=== PATIENT | male | born 1960 | race Caucasian/White ===

== ENCOUNTER 2021-10-07 07:57 | Outpatient (CLI) | payer OTHER, SELFPAY ==
[2021-10-07 12:42] LABS: Albumin* 4.3 g/dL (3.3-5.0); Chloride* 106 mmol/L (96-114); Potassium* 4.5 mmol/L (3.6-5.1); Sodium* 139 mmol/L (135-149)
[2021-10-07 12:44] LABS: Bilirubin Total* 0.4 mg/dL (0.1-1.5); Carbon Dioxide* 23 mmol/L (20-32); Creatinine* 0.8 mg/dL (0.5-1.5); Estimated Glomerular Filt Rate 102 ml/min
[2021-10-07 12:45] LABS: Alanine Aminotransferase* 22 U/L (4-50); Alkaline Phosphatase* 92 U/L (40-150); Aspartate Amino Transferase* 27 U/L (12-35); Blood Urea Nitrogen* 27 mg/dL (7-30); Calcium* 9.1 mg/dL (8.4-10.6); Glucose* 149 mg/dL (60-115); Total Protein* 7.1 g/dL (6.0-8.3)
[2021-10-07 12:48] LABS: Creatinine Urine 170.8 mg/dL
[2021-10-07 12:53] LABS: Microalbumin Creatinine Ratio 20 mg/g (0-30); Microalbumin Urine 4 mg/dL
== END 2021-10-07 07:58 | disposition home or self-care (01) ==
PROVIDERS: PCP Family Medicine; Visit Provider Family Medicine
DX: E11.69 Type 2 diabetes mellitus with other specified complication (principal); E66.01 Morbid (severe) obesity due to excess calories; E66.9 Obesity, unspecified; I10 Essential (primary) hypertension; F90.2 Attention-deficit hyperactivity disorder, combined type; Z68.43 Body mass index [BMI] 50.0-59.9, adult
CPT/HCPCS: 80053; 82043; 82570

== ENCOUNTER 2022-01-10 15:10 | Outpatient (CLI) | payer OTHER, SELFPAY ==
[2022-01-10 10:45] LABS: Albumin* 4.6 g/dL (3.3-5.0); Chloride* 106 mmol/L (96-114)
[2022-01-10 10:46] LABS: Potassium* 4.6 mmol/L (3.6-5.1); Sodium* 138 mmol/L (135-149)
[2022-01-10 10:48] LABS: Alanine Aminotransferase* 24 U/L (4-50); Alkaline Phosphatase* 88 U/L (40-150); Aspartate Amino Transferase* 23 U/L (12-35); Bilirubin Total* 0.4 mg/dL (0.1-1.5); Blood Urea Nitrogen* 19 mg/dL (7-30); Carbon Dioxide* 22 mmol/L (20-32); Creatinine* 0.8 mg/dL (0.5-1.5); Estimated Glomerular Filt Rate 102 ml/min; Glucose* 117 mg/dL (60-115); Total Protein* 7.2 g/dL (6.0-8.3)
[2022-01-10 10:49] LABS: Calcium* 9.5 mg/dL (8.4-10.6)
== END 2022-01-10 15:11 | disposition home or self-care (01) ==
PROVIDERS: PCP Family Medicine; Visit Provider Family Medicine
DX: I10 Essential (primary) hypertension (principal); E66.9 Obesity, unspecified
CPT/HCPCS: 80053

== ENCOUNTER 2022-01-25 08:42 | Outpatient (CLI) | payer OTHER, SELFPAY ==
[2022-01-25 14:25] LABS: Chloride* 103 mmol/L (96-114); Potassium* 4.9 mmol/L (3.6-5.1); Sodium* 136 mmol/L (135-149)
[2022-01-25 14:28] LABS: Blood Urea Nitrogen* 24 mg/dL (7-30); Carbon Dioxide* 22 mmol/L (20-32); Creatinine* 0.8 mg/dL (0.5-1.5); Estimated Glomerular Filt Rate 102 ml/min; Glucose* 124 mg/dL (60-115)
[2022-01-25 14:29] LABS: Calcium* 9.8 mg/dL (8.4-10.6)
== END 2022-01-25 08:43 | disposition home or self-care (01) ==
LOC: NFLDREF 09:11
PROVIDERS: PCP Family Medicine; Visit Provider Family Medicine
DX: I10 Essential (primary) hypertension (principal)
CPT/HCPCS: 80048

== ENCOUNTER 2022-10-17 07:35 | Outpatient (CLI) | payer OTHER, SELFPAY | END 2022-10-17 07:36 | disposition home or self-care (01) | LOC: NFLDREF 10:34 | PROVIDERS: PCP Family Medicine; Referring Provider Family Medicine; Visit Provider Family Medicine | DX: I10 Essential (primary) hypertension (principal); Z79.1 Long term (current) use of non-steroidal anti-inflammatories (NSAID); E11.69 Type 2 diabetes mellitus with other specified complication; E66.9 Obesity, unspecified | CPT/HCPCS: 80053 ==

== ENCOUNTER 2023-01-12 10:08 | Outpatient (CLI) | payer OTHER, SELFPAY ==
--- NOTE | 2023-01-12 11:40 | W.ANESCHARGE ---
Anesthesia Charges Start Date/Time Anesthesia Start Date: 01/12/23 Anesthesia Start Time: 11:05 Stop Date/Time Anesthesia Stop Date: 01/12/23 Anesthesia Stop Time: 11:38
--- NOTE | 2023-01-12 11:59 | W.ANESCHARGE ---
Anesthesia Charges Start Date/Time Anesthesia Start Date: 01/12/23 Anesthesia Start Time: 11:05 Stop Date/Time Anesthesia Stop Date: 01/12/23 Anesthesia Stop Time: 11:38
== END 2023-01-12 10:09 | disposition home or self-care (01) ==
LOC: OP CLINIC 10:08
PROVIDERS: PCP Family Medicine; Visit Provider Surgery
DX: Z12.11 Encounter for screening for malignant neoplasm of colon (principal); K63.5 Polyp of colon; Z86.010 Personal history of colon polyps
CPT/HCPCS: 00811; 45385; 88305; J2704

== ENCOUNTER 2023-01-16 07:35 | Outpatient (CLI) | payer OTHER, SELFPAY | END 2023-01-16 07:36 | disposition home or self-care (01) | LOC: NFLDREF 01-18 11:35 | PROVIDERS: PCP Family Medicine; Referring Provider Family Medicine; Visit Provider Family Medicine | DX: I10 Essential (primary) hypertension (principal); E11.69 Type 2 diabetes mellitus with other specified complication; E66.9 Obesity, unspecified; Z79.1 Long term (current) use of non-steroidal anti-inflammatories (NSAID) | CPT/HCPCS: 80053 ==

== ENCOUNTER 2023-07-17 07:25 | Outpatient (CLI) | payer BC, SELFPAY | END 2023-07-17 07:26 | disposition home or self-care (01) | LOC: NFLDREF 07-31 17:33 | PROVIDERS: PCP Family Medicine; Referring Provider Family Medicine; Visit Provider Family Medicine | DX: E11.69 Type 2 diabetes mellitus with other specified complication (principal); E55.9 Vitamin D deficiency, unspecified; E78.5 Hyperlipidemia, unspecified; I10 Essential (primary) hypertension; Z79.1 Long term (current) use of non-steroidal anti-inflammatories (NSAID) | CPT/HCPCS: 80053; 80061; 82043; 82306; 82570; 82607; G0103 ==

== ENCOUNTER 2023-07-19 07:57 | Outpatient (CLI) | payer BC, SELFPAY | END 2023-07-19 07:58 | disposition home or self-care (01) | LOC: NFLDREF 07:58 | PROVIDERS: PCP Family Medicine; Visit Provider Family Medicine | DX: Z00.00 Encounter for general adult medical examination without abnormal findings (principal); E11.69 Type 2 diabetes mellitus with other specified complication; E66.9 Obesity, unspecified; I10 Essential (primary) hypertension; Z12.5 Encounter for screening for malignant neoplasm of prostate; Z79.1 Long term (current) use of non-steroidal anti-inflammatories (NSAID); Z13.9 Encounter for screening, unspecified | CPT/HCPCS: 82043; 82570 ==

== ENCOUNTER 2023-10-05 09:15 | Emergency (ER) | payer BC, SELFPAY ==
[2023-10-05 09:26] VITALS: BP 124/74; PULSE 100; RESP 16; TEMP 36.3; O2SAT 98; BMI 46.7
--- NOTE | 2023-10-05 09:46 | ED_ITS ---
HPI - General Adult General Chief complaint: Arrhythmia/Palpitations Stated complaint: Palpitations, sweating, smart watch says afib Time Seen by Provider: 10/05/23 09:21 History of Present Illness HPI narrative: This 63-year-old male comes in reporting symptoms of lightheadedness and di aphoresis and some chest discomfort that occur with exertion. He states that he looked at his what chin saw an irregular beat that his watch determined was atrial fibrillation. He reports now that he has been experiencing some chest discomfort with exertion over the past week or 2. This morning he climbed up a ladder onto a roof and began to have symptoms of chest discomfort, lightheadedness, and diaphoresis. His symptoms resolved with rest. He is not currently having any symptoms. He is taking medicine for his blood pressure but does not have any other risk factors except for obesity. Related Data Home Medications ?Medication ?Instructions ?Recorded ?Confirmed fexofenadine 60 mg tablet (Allergy 60 mg PO QDAY 10/12/21 07/19/23 Relief (fexofenadine)) flaxseed oil 1,000 mg capsule 1,000 mg PO QDAY 10/12/21 07/19/23 glucosamine HCl 500 mg tablet 500 mg PO QDAY 10/12/21 07/19/23 magnesium oxide 250 mg PO QDAY 10/12/21 07/19/23 naproxen sodium 220 mg tablet 220 mg PO BID 10/12/21 07/19/23 omeprazole 20 mg capsule,delayed 20 mg PO QDAY 10/12/21 07/19/23 release thiamine HCl (vitamin B1) 50 mg 50 mg PO QDAY 10/12/21 07/19/23 tablet cholecalciferol (vitamin D3) 50 50 mcg PO QDAY 07/19/23 07/19/23 mcg (2,000 unit) tablet Previous Rx's ?Medication ?Instructions ?Recorded blood sugar diagnostic (Wireless EnvironmentTouch #100 ea 09/28/21 Verio test strips) chlorthalidone 25 mg tablet 12.5 mg (1/2 x 25 mg) PO QDAY #90 07/19/23 tabs metformin 500 mg tablet,extended 1,000 mg (2 x 500 mg) PO BID #360 07/19/23 release 24 hr tabs rosuvastatin 5 mg tablet 5 mg PO DAILY #90 tabs 07/19/23 semaglutide 2 mg/dose (8 mg/3 mL) 2 mg (0.75 mL) subcut QWEEK #3 mL 07/19/23 subcutaneous pen injector (Ozempic) sertraline 100 mg tablet 200 mg (2 x 100 mg) PO DAILY #180 07/19/23 tabs methylphenidate HCl 20 mg 20 mg PO BID #60 tabs 09/15/23 tablet,extended release lisinopril 40 mg tablet 40 mg PO DAILY #90 tabs 10/03/23 metoprolol succinate 25 mg 25 mg PO DAILY #30 tabs 10/05/23 tablet,extended release 24 hr Allergies Allergy/AdvReac Type Severity Reaction Status Date / Time No Known Allergies Allergy Verified 07/19/23 07:18 Review of Systems Status of ROS: Reports: 10 or more systems reviewed and unremarkable except as noted in History and below Narrative: Constitutional: No fevers, no weight gain or loss. Eyes: No discharge. No vision changes. HENT: No congestion, no sore throat, no ear pain. Cardiovascular: Chest discomfort and palpitations that occur with exertion and are relieved with rest. Respiratory: No shortness of breath, no wheezes, no cough. Gastrointestinal: No abdominal pain, no vomiting, no diarrhea. Genitourinary: No dysuria, no hematuria. Musculoskeletal: Normal range of motion. Skin: No rashes, no pruritis. Neurological: No dizziness, weakness, sensory change, speech change. Endo/Heme/Allergies: No bruising or bleeding. No polydipsia. Pysch: no suicidality, no anxiety, no insomnia. All other systems reviewed and are negative. [facility] Medical History (Updated 10/05/23 @ 18:05 by Cain Cope MD) Morbid obesity with body mass index (BMI) of 50.0 to 59.9 in adult ?E66.01 - Morbid (severe) obesity due to excess calories (ICD-10) ?Z68.43 - Body mass index [BMI] 50.0-59.9, adult (ICD-10) Dyslipidemia ?E78.5 - Hyperlipidemia, unspecified (ICD-10) Greater trochanteric bursitis of both hips (~12/2021) ?M70.61 - Trochanteric bursitis, right hip (ICD-10) ?M70.62 - Trochanteric bursitis, left hip (ICD-10) Melanoma (2018) ?C43.9 - Malignant melanoma of skin, unspecified (ICD-10) Obstructive sleep apnea treated with continuous positive airway pressure (CPAP) ?G47.33 - Obstructive sleep apnea (adult) (pediatric) (ICD-10) ?Z99.89 - Dependence on other enabling machines and devices (ICD-10) Type 2 diabetes mellitus with obesity ?E11.69 - Type 2 diabetes mellitus with other specified complication (ICD-10) ?E66.9 - Obesity, unspecified (ICD-10) Tubular adenoma of colon (2012) ?D12.6 - Benign neoplasm of colon, unspecified (ICD-10) Transient bowel obstruction (2008) ?K56.609 - Unspecified intestinal obstruction, unspecified as to partial versus complete obstruction (ICD-10) Lateral epicondylitis of left elbow ?M77.12 - Lateral epicondylitis, left elbow (ICD-10) Hypertension ?I10 - Essential (primary) hypertension (ICD-10) Encounter for long-term (current) use of non-steroidal anti-inflammatories ?Z79.1 - exterminator helper (current) use of non-steroidal anti-inflammatories (NSAID) (ICD-10) Anxiety and depression ?F41.9 - Anxiety disorder, unspecified (ICD-10) ?F32.A - Depression, unspecified (ICD-10) Allergy to dust ?J30.89 - Other allergic rhinitis (ICD-10) Acne keloidalis nuchae ?L73.0 - Acne keloid (ICD-10) ADHD (2016) ?F90.9 - Attention-deficit hyperactivity disorder, unspecified type (ICD-10) Surgical History (Updated 10/12/21 @ 12:46 by Claudia Nelson MD) History of nasal surgery ?Z98.890 - Other specified postprocedural states (ICD-10) History of right inguinal hernia repair ?Z98.890 - Other specified postprocedural states (ICD-10) ?Z87.19 - Personal history of other diseases of the digestive system (ICD-10) History of melanoma excision (10/2017) ?Z98.890 - Other specified postprocedural states (ICD-10) ?Z85.820 - Personal history of malignant melanoma of skin (ICD-10) History of hernia repair (09/05/11) ?Z98.890 - Other specified postprocedural states (ICD-10) ?Z87.19 - Personal history of other diseases of the digestive system (ICD-10) Family History (Updated 01/03/22 @ 10:51 by Maryann Holguin ~ MORTGAGE COUNSELOR, MORTGAGE COUNSELOR) Father Coronary artery disease Esophageal carcinoma Prostate carcinoma Mother Depression Maternal Grandfather Paranoid schizophrenia Family/Other Prostate carcinoma Son Testicular cancer Maternal Grandmother DVT (deep venous thrombosis) Social History (Updated 07/19/23 @ 09:41 by Sheri Clark ~ CTA) Narrative: Does not drink alcohol No regular exercise but 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 , 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-smoker What is your current living situation?: I presently have a place to live Problems where you live: no known problems In the past 12 months, utilities in danger of being shut off: no In past 12 months, lack of transportation kept you from medical appts, meetings, work, or getting things needed for daily living: no In the past 12 mos, have been you worried that your food would run out before you had money to buy more?: never true In the past 12 mos, the food you bought just didn't last and you didn't have money to buy more?: never true Smoking Status: Never smoker How often do you have a drink containing alcohol: never How often do you have six or more drinks on one occasion: Never AUDIT-C Alcohol total score: 0 Non-prescribed substance use: denies use How often does anyone, including family, friends and others, physically hurt you : never How often does anyone, including family, friends and others, insult or talk down to you: never How often does anyone, including family, friends and others, threaten you with harm: never How often does anyone, including family, friends and others, scream or curse at you: never Little interest or pleasure in doing things: not at all Feeling down, depressed, or hopeless: not at all service: No Exam Narrative: Exam Narrative: Constitutional: Well-developed, well-nourished, no acute distress. HEENT: Normocephalic, atraumatic. Neck: Normal range of motion. Nontender. Supple. Heart: Regular. No murmurs. Normal rate. Intact distal pulses. Lungs: Clear to auscultation. No chest discomfort. No wheezes, rhonchi, or rales. Abdomen: Normal bowel sounds. Nontender. No rebound tenderness. Genitalia: Deferred. Back: No midline tenderness. Normal range of motion. Extremities: Normal range of motion. No injury. Skin: Intact. No rash. Warm. No erythema or pallor. Neurologic: No altered sensation. No weakness. Alert and oriented. Psychiatric: No suicidality. No anxiety or depression. No insomnia. Nursing notes and vitals signs are reviewed. Const: Vital Signs, click to edit/add: Vital Signs - 24 hr 10/05/23 09:26 10/05/23 16:41 Temperature 97.3 F L Pulse Rate [Blood Pressure Cuff] 111 H Pulse Rate [Left P ulse Oximeter] 100 Respiratory Rate 16 20 Blood Pressure [Le ft Arm] 160/82 H Blood Pressure [Le ft Upper Arm] 124/74 Pulse Oximetry 98 Oxygen Delivery Me thod Room Air Room Air Course Vital Signs Vital signs: Initial Vital Signs Respiratory Effort Normal 10/05/23 09:22 Respiratory Depth Normal 10/05/23 09:22 Respiratory Pattern Normal 10/05/23 09:22 Vital Signs Temperature 97.3 F L 10/05/23 09:26 Pulse Rate 100 10/05/23 09:26 Respiratory Rate 16 10/05/23 09:26 Blood Pressure 124/74 10/05/23 09:26 Pulse Oximetry 98 10/05/23 09:26 Oxygen Delivery Method Room Air 10/05/23 09:26 Temperature 97.3 F L 10/05/23 09:26 Pulse Rate 111 H 10/05/23 16:41 Respiratory Rate 20 10/05/23 16:41 Blood Pressure 160/82 H 10/05/23 16:41 Pulse Oximetry 98 10/05/23 09:26 Oxygen Delivery Method Room Air 10/05/23 16:41 Medications Administered Medications: Discontinued Medications Generic Name Dose Route Start Last Admin Trade Name Freq PRN Reason Stop Dose Admin Aspirin 324 mg 10/05/23 09:45 10/05/23 10:00 Aspirin 81 Mg Tab.Chew PO 10/05/23 09:46 324 mg ONCE ONE Administration Perflutren Lipid Microsphere 2 ml 10/05/23 16:16 10/05/23 16:43 Perflutren Lipid Microspheres 2 Ml Vial IV 10/05/23 16:17 2 ml ONCE ONE Administration Medical Decision Making MDM Narrative Medical decision making narrative: This patient comes in reporting lightheadedness and palpitations with some chest discomfort as described above. I did contact a double head machine operator as his symptoms were rather suspicious for some kind of coronary artery disease or dysrhythmia. His labs an EKG here returned normal. The double head machine operator recommended stress t esting and the patient was able to get on the schedule today but had to wait about 5 hours. A stress echocardiogram was done and the patient had to stop the test at around 3 minutes of exertion because of dysrhythmia. He did not show any signs of ST changes but did have a run of 5 beats of ventricular tachycardia and then a few couplets of abnormal beats here and there. The patient is okay to be discharged home. He did receive an aspirin here and advised him to take a regular strength aspirin daily and follow up with his primary physician for a Zio patch. The patient also understands that he should return here if any symptoms are recurrent. I advised him to avoid exertions that trigger symptoms. I did provide a prescription for metoprolol succinate 25 mg. The patient's blood pressure is on the lower side and it seems that there is benefit of a beta-jennifer for rate control over against other antihypertensives. The patient states that he has lost 50 lb intentionally and this may have changed his needs for medications. He records a blood pressure of systolic value of 90 previously and may be on too much antihypertensive medicine. I advised him to recheck his blood pressures regularly and follow up with his primary physician. Lab Data Labs: Lab Results 10/05/23 10/05/23 Range/Units 09:46 09:55 WBC 8.98 (4.50-11.00) K/uL RBC 4.85 (4.30-5.90) m/uL Hgb 14.1 (13.5-17.5) gm/dL Hct 42.4 (37.0-53.0) % MCV 87 (80-100) fL MCH 29 (26-34) pg MCHC 33 (32-36) gm/dL RDW Coeff of Raudel 13.6 (11.5-15.5) % Plt Count 228 (140-440) K/uL Neut % (Auto) 78.4 H (42.0-72.0) % Lymph % (Auto) 14.5 L (20-44) % Bland % (Auto) 5.5 (0.0-11.0) % Eos % (Auto) 1.2 (0.0-7.0) % Baso % (Auto) 0.3 (0.0-3.0) % Neut # (Auto) 7.00 (1.7-7.0) K/uL Lymph # (Auto) 1.30 (0.90-2.90) K/uL Bland # (Auto) 0.50 (0.00-0.90) K/UL Eos # (Auto) 0.11 (0.00-0.50) K/uL Baso # (Auto) 0.03 (0.00-0.30) K/uL Abs Immat Gran (auto) 0.01 (0.00-0.30) K/uL Imm/Tot Granulo (auto) 0.1 % Sodium 135 (135-149) mmol/L Potassium 4.0 (3.6-5.1) mmol/L Chloride 104 (96-114) mmol/L Carbon Dioxide 21 (20-32) mmol/L Anion Gap 10 (7-15) mEq/L BUN 23 (7-30) mg/dL Creatinine 0.9 (0.5-1.5) mg/dL Estimated Creat Clear 82.62 Estimated GFR 97 ml/min Glucose 107 (60-115) mg/dL Calcium 9.6 (8.4-10.6) mg/dL POC Troponin I 0.01 (0.01-0.04) ng/ml ECG Data Attestation: I personally reviewed and interpreted this ECG as follows: Interpretation: Normal sinus rhythm. Rate is 99 beats per minute. There are no ST or T-wave abnormalities. Discharge Plan Discharge Clinical Impression: Cardiac dysrhythmia Patient Disposition: Home w/ Parent or Adult Condition: Stable Additional Instructions: Take metoprolol as prescribed. Monitor blood pressure and avoid hypotension. Follow-up with primary physician for Zio patch placement and ongoing management. Return if worsening. Prescriptions: New metoprolol succinate 25 mg tablet extended release 24 hr 25 mg PO DAILY Qty: 30 2RF No Action magnesium oxide 250 mg magnesium tablet 250 mg PO QDAY naproxen sodium 220 mg tablet 220 mg PO BID thiamine HCl (vitamin B1) 50 mg tablet 50 mg PO QDAY omeprazole 20 mg capsule,delayed release(DR/EC) 20 mg PO QDAY glucosamine HCl 500 mg tablet 500 mg PO QDAY Rx Instructions: administer with a meal flaxseed oil 1,000 mg capsule 1,000 mg PO QDAY Rx Instructions: administer with a meal fexofenadine [Allergy Relief (fexofenadine)] 60 mg tablet 60 mg PO QDAY cholecalciferol (vitamin D3) 50 mcg (2,000 unit) tablet 50 mcg PO QDAY chlorthalidone 25 mg tablet 12.5 mg PO QDAY Qty: 90 3RF metformin 500 mg tablet extended release 24 hr 1,000 mg PO BID Qty: 360 3RF rosuvastatin 5 mg tablet 5 mg PO DAILY Qty: 90 3RF Ozempic 2 mg/dose (8 mg/3 mL) pen injector 2 mg subcut QWEEK Qty: 3 12RF sertraline 100 mg tablet 200 mg PO DAILY Qty: 180 3RF Rx Instructions: take 200 mg daily (DME) OneTouch Verio test strips Strip See Rx Instructions .Route Qty: 100 2RF Rx Instructions: BID methylphenidate HCl 20 mg tablet extended release 20 mg PO BID Qty: 60 0RF lisinopril 40 mg tablet 40 mg PO DAILY Qty: 90 0RF Follow Up/Referrals: Claudia Nelson MD [Primary Care Provider] - Stand Alone Forms: [facility] Info Instructions
[2023-10-05] MEDS: ASPIRIN 81 MG TAB.CHEW 324 MG PO (10:00)
[2023-10-05 10:04] LABS: Basophils Absolute Auto 0.03 K/uL (0.00-0.30); Basophils Percent Auto 0.3 % (0.0-3.0); Eosinophils Absolute Auto 0.11 K/uL (0.00-0.50); Eosinophils Percent Auto 1.2 % (0.0-7.0); Hematocrit 42.4 % (37.0-53.0); Hemoglobin* 14.1 gm/dL (13.5-17.5); Immature Granulocytes Abs Auto 0.01 K/uL (0.00-0.30); Immature Granulocytes Pct Auto 0.1 %; Lymphocytes Percent Auto 14.5 % (20-44); Mean Corpuscular HGB Conc 33 gm/dL (32-36); Mean Corpuscular Hemoglobin 29 pg (26-34); Mean Corpuscular Volume 87 fL (80-100); Monocytes Percent Auto 5.5 % (0.0-11.0); Neutrophils Percent Auto 78.4 % (42.0-72.0); Platelet Count* 228 K/uL (140-440); RDW Coefficient of Variation % 13.6 % (11.5-15.5); Red Blood Count 4.85 m/uL (4.30-5.90); Slide Review Reflex No; White Blood Count* 8.98 K/uL (4.50-11.00)
[2023-10-05 10:09] LABS: Troponin, Point-of-Care* 0.01 ng/ml (0.01-0.04)
[2023-10-05 10:17] LABS: Chloride* 104 mmol/L (96-114); Sodium* 135 mmol/L (135-149)
[2023-10-05 10:19] LABS: Creatinine* 0.9 mg/dL (0.5-1.5); Est. Creatinine Clearance* 82.62; Estimated Glomerular Filt Rate 97 ml/min
[2023-10-05 10:20] LABS: Anion Gap 10 mEq/L (7-15); Blood Urea Nitrogen* 23 mg/dL (7-30); Calcium* 9.6 mg/dL (8.4-10.6); Carbon Dioxide* 21 mmol/L (20-32); Glucose* 107 mg/dL (60-115)
[2023-10-05 13:00] VITALS: BP 132/67; PULSE 98; RESP 18; O2SAT 99
--- NOTE | 2023-10-05 16:01 | W.PM.STED ---
Stress Test Note Date Date Seen: 10/05/23 Date of test: 10/05/23 Providers Referring provider: Cain Cope Primary care provider: Claudia Nelson Stress test physician: Brit Clemens Stress Test Note Stress test ordered: Stress Echo Indication for test: Chest pain concerning for angina, in ED Stress test medicine: Definity Results discussion: Resting EKG: Sinus rhythm, 93 beats per minute. Artifact V1. No acute ischemia or infarct noted. Resting blood pressure: 112/74 Stress test: Patient was consented on exercise treadmill standard Phi protocol stress echo. Patient exercised to 3 minutes 36 seconds, requesting to stop due to shortness of breath as well as hip pain from underlying arthritis reported. He had no chest pain. His exercise was equivocal into a 5.4 Mets. He had a maximum heart rate of 160 beats per minute which was 118% of a calculated target heart rate of 135, max calculated heart rate 159. He had a rate pressure product during exercise a 23,254. He did have occasional PVCs, a few couplets of PVCs during recovery. At 1 minute 59 seconds in recovery, there is EKG documentation of 5 beat run of V-tach for which patient was asymptomatic. Preliminary echo images are negative for ischemia. Patient was brought back to the ED department, he had no chest pain during the stress test and was in stable condition. Impression: Subjectively negative, objectively negative EKG for ischemia, poor exercise tolerance and testing is limited by poor work load, ventricular ectopy seen, 1 asymptomatic run 5 beat V-tachycardia. Follow up suggested: Will update his ED physician Dr. Cope.
[2023-10-05 16:41] VITALS: BP 160/82; PULSE 111; RESP 20
[2023-10-05] MEDS: PERFLUTREN LIPID MICROSPHERES 2 ML VIAL IV (16:43)
[2023-10-05 18:00] VITALS: BP 113/64; PULSE 90; RESP 18; O2SAT 95
[2023-10-05 18:25] VITALS: BP 116/54; PULSE 98; RESP 18; O2SAT 94
== END 2023-10-05 18:18 | disposition home or self-care (01) ==
PROVIDERS: Emergency Provider Emergency Medicine Emergency Medical Services; PCP Family Medicine
DX: I49.8 Other specified cardiac arrhythmias (principal)
CPT/HCPCS: 36415; 80048; 84484; 85025; 93005; 93016; 93325; 93351; 99284; 99285; A9270; Q9957

== ENCOUNTER 2023-10-10 15:25 | Outpatient (CLI) | payer BC, SELFPAY | END 2023-10-10 15:26 | disposition home or self-care (01) | PROVIDERS: PCP Family Medicine; Visit Provider Family Medicine | DX: I49.9 Cardiac arrhythmia, unspecified (principal); I10 Essential (primary) hypertension; E11.69 Type 2 diabetes mellitus with other specified complication; E66.9 Obesity, unspecified | CPT/HCPCS: 80048; 84443 ==

== ENCOUNTER 2024-01-15 07:25 | Outpatient (CLI) | payer BC, SELFPAY | END 2024-01-15 07:26 | disposition home or self-care (01) | LOC: NFLDREF 01-17 10:12 | PROVIDERS: PCP Family Medicine; Referring Provider Family Medicine; Visit Provider Family Medicine | DX: I10 Essential (primary) hypertension (principal); E11.69 Type 2 diabetes mellitus with other specified complication; E66.9 Obesity, unspecified; F41.9 Anxiety disorder, unspecified; F32.A Depression, unspecified | CPT/HCPCS: 80048 ==

== ENCOUNTER 2024-07-15 07:38 | Outpatient (CLI) | payer BC, SELFPAY | END 2024-07-15 07:39 | disposition home or self-care (01) | LOC: NFLDREF 07-20 19:31 | PROVIDERS: PCP Family Medicine; Referring Provider Family Medicine; Visit Provider Family Medicine | DX: Z00.01 Encounter for general adult medical examination with abnormal findings (principal); E78.5 Hyperlipidemia, unspecified; I10 Essential (primary) hypertension; M81.0 Age-related osteoporosis without current pathological fracture; E11.69 Type 2 diabetes mellitus with other specified complication; E66.01 Morbid (severe) obesity due to excess calories; Z68.42 Body mass index [BMI] 45.0-49.9, adult; Z79.1 Long term (current) use of non-steroidal anti-inflammatories (NSAID); Z79.899 Other long term (current) drug therapy; Z12.5 Encounter for screening for malignant neoplasm of prostate | CPT/HCPCS: 80053; 80061; 82043; 82306; 82570; 82607; G0103 ==

== ENCOUNTER 2025-01-14 07:34 | Outpatient (CLI) | payer BC, SELFPAY | END 2025-01-14 07:35 | disposition home or self-care (01) | LOC: NFLDREF 01-17 04:19 | PROVIDERS: PCP Family Medicine; Referring Provider Family Medicine; Visit Provider Family Medicine | DX: E11.69 Type 2 diabetes mellitus with other specified complication (principal) | CPT/HCPCS: 80053 ==